=== PATIENT | female | born 1970 | race Hispanic/Latino ===

== ENCOUNTER 2021-03-19 07:47 | Outpatient (CLI) | payer OTHER ==
[2021-03-19] MEDS ORDERED: Iopamidol 370 76% 100 ML VIAL ONE (09:45)
== END 2021-03-19 07:48 | disposition home or self-care (01) ==
LOC: ULT 07:47
PROVIDERS: ATTEND Urology
DX: R35.0 Frequency of micturition (principal); R35.1 Nocturia; Z87.448 Personal history of other diseases of urinary system
CPT/HCPCS: 51600; 74455; 76770; Q9967